=== PATIENT | male | born 1960 | race Asian ===

== ENCOUNTER 2018-08-20 07:30 | Inpatient (IN) | payer OTHER ==
[2018-08-20] MEDS: SOD CHLORIDE 0.9% 1,000 ML IV (07:56)
[2018-08-20] MEDS: CEFAZOLIN 2 GM/50 ML (PMX) 50 ML IVPB (09:00)
[2018-08-20] MEDS: BUPIVACAINE 0.25% (MPF) 30 ML INJ (09:43)
[2018-08-20] MEDS ORDERED: NEOSTIGMINE 3 MG/3 ML SYRINGE (11:03)
[2018-08-20] MEDS ORDERED: PROPOFOL 20 ML (11:03)
[2018-08-20] MEDS ORDERED: GLYCOPYRROLATE 0.4 MG INJ (11:03)
[2018-08-20] MEDS ORDERED: CEFAZOLIN 1 GM INJ (11:03)
[2018-08-20] MEDS ORDERED: ROCURONIUM 50 MG INJ (11:03)
[2018-08-20] MEDS ORDERED: LIDOCAINE 2% (SDV) 5 ML INJ (11:03)
[2018-08-20] MEDS ORDERED: ONDANSETRON 4 MG INJ (11:04)
[2018-08-20] MEDS ORDERED: hydrALAzine 20 MG INJ IV (11:30)
[2018-08-20] MEDS ORDERED: KETOROLAC 30 MG INJ IV (11:30)
[2018-08-20] MEDS ORDERED: DIPHENHYDRAMINE 50 MG INJ IV (11:30)
[2018-08-20] MEDS ORDERED: LABETALOL HCL 20MG INJ IV (11:30)
[2018-08-20] MEDS ORDERED: METOCLOPRAMIDE 10 MG INJ IV (11:30)
[2018-08-20] MEDS ORDERED: HYDROmorphONE 1 MG/5 ML IV SYRINGE IV (11:30)
[2018-08-20] MEDS: MEPERIDINE 25 MG INJ IV (11:32)
[2018-08-20] MEDS: ONDANSETRON 4 MG INJ IV (11:34)
[2018-08-20] MEDS: HYDROmorphONE 1 MG/5 ML IV SYRINGE IV (12:08)
[2018-08-20] MEDS: HYDROCODONE/APAP (5/325) TAB PO (12:18)
[2018-08-20] MEDS: FENTAnyl 50 MCG/ML VIAL IV (12:37)
[2018-08-20] MEDS ORDERED: ALBUTEROL 0.083% (NEB) 2.5 MG/3 ML AMP HHN (14:00)
[2018-08-20] MEDS: SOD CHLORIDE 0.45% 1,000 ML IV (20:59)
[2018-08-20] MEDS ORDERED: GLUCAGON 1 MG INJ IM (21:00)
[2018-08-20] MEDS ORDERED: GLUCOSE GEL 15 GRAM TUBE BUCCAL (21:00)
[2018-08-20] MEDS ORDERED: DEXTROSE 50% 50 ML SYRINGE IV ×2 (21:00)
[2018-08-20] MEDS ORDERED: GLUCOSE GEL 15 GRAM TUBE PO ×2 (21:00)
[2018-08-20] MEDS: ATORVASTATIN 40 MG TAB PO (21:00)
[2018-08-20] MEDS: INSULIN ASPART [NOVOLOG] 3 ML PEN SC (21:25)
[2018-08-20] MEDS: ALBUTEROL/IPRATROPIUM (NEB) 3 ML AMP HHN (22:06)
[2018-08-21] MEDS: ACETAMINOPHEN 325 MG TAB PO ×2 (00:35→21:15)
[2018-08-21] MEDS: ACCU-CHEK XX (02:00)
[2018-08-21 05:08] LABS: ADD MAN DIFF? NO
[2018-08-21 05:11] LABS: BASOPHILS % 0.2 % (0.0-2.0); EOSINOPHILS % 0.2 % (0.0-7.0); HEMATOCRIT 34.4 % (42.0-52.0); HEMOGLOBIN 11.2 g/dl (14.0-18.0); LYMPHOCYTES % 14.9 % (15.0-51.0); MEAN CORPUSCULAR HEMOGLOBIN 25.4 pg (29.0-33.0); MEAN CORPUSCULAR HGB CONC 32.6 g/dl (32.0-37.0); MEAN PLATELET VOLUME 11.1 fl (7.4-10.4); MONOCYTE # 1.1 10^3/ul (0.3-0.9); MONOCYTES % 8.1 % (0.0-11.0); NEUTROPHILS % 76.3 % (39.0-77.0); PLATELET COUNT 247 10^3/UL (140-415); RED BLOOD COUNT 4.41 10^6/ul (4.70-6.10)
[2018-08-21 05:11] LABS: WHITE BLOOD COUNT 13.1 10^3/ul (4.8-10.8)
[2018-08-21 05:34] LABS: ANION GAP 7 (5-13); BLOOD UREA NITROGEN 9 mg/dl (7-20); CALCIUM 8.8 mg/dl (8.4-10.2); CARBON DIOXIDE 30 mmol/L (21-31); CHLORIDE 98 mmol/L (97-110); CREATININE 0.85 mg/dl (0.61-1.24); Estimated GFR > 60 mL/min (>60); GLUCOSE 195 mg/dl (70-220); SODIUM 135 mmol/L (135-144)
[2018-08-21 05:39] LABS: POTASSIUM 4.1 mmol/L (3.5-5.1)
[2018-08-21] MEDS: HYDROCODONE/APAP (5/325) TAB PO (05:46)
[2018-08-21] MEDS: PANTOPRAZOLE (EC) 40 MG TAB PO (07:02)
[2018-08-21] MEDS: INSULIN ASPART [NOVOLOG] 3 ML PEN SC ×4 (08:45→21:00)
[2018-08-21] MEDS: ASPIRIN (EC) 81 MG TAB PO (09:28)
[2018-08-21] MEDS: AMLODIPINE 10 MG TAB PO (09:28)
[2018-08-21] MEDS: LOSARTAN 50 MG TAB PO (09:29)
[2018-08-21] MEDS: SOD CHLORIDE 0.45% 1,000 ML IV (13:18)
[2018-08-21] MEDS: KETOROLAC 15 MG INJ IV (14:26)
[2018-08-21] MEDS ORDERED: morphine SULFATE/PF (2 MG/2 ML) SYG IV (14:35)
[2018-08-21] MEDS: morphine SULFATE/PF (2 MG/2 ML) SYG IV ×2 (14:40→21:15)
[2018-08-21 15:15] LABS: ADD MAN DIFF? NO
[2018-08-21 15:18] LABS: BASOPHILS % 0.2 % (0.0-2.0); EOSINOPHILS % 0.3 % (0.0-7.0); HEMATOCRIT 36.9 % (42.0-52.0); HEMOGLOBIN 11.8 g/dl (14.0-18.0); LYMPHOCYTES # 1.6 10^3/ul (0.8-2.9); LYMPHOCYTES % 11.3 % (15.0-51.0); MEAN CORPUSCULAR HEMOGLOBIN 24.9 pg (29.0-33.0); MONOCYTE # 0.9 10^3/ul (0.3-0.9); MONOCYTES % 6.6 % (0.0-11.0); NEUTROPHIL # 11.6 10^3/ul (1.6-7.5); NEUTROPHILS % 81.1 % (39.0-77.0); PLATELET COUNT 264 10^3/UL (140-415); RED BLOOD COUNT 4.73 10^6/ul (4.70-6.10); RED CELL DISTRIBUTION WIDTH 14.8 % (11.5-14.5)
[2018-08-21 15:18] LABS: WHITE BLOOD COUNT 14.3 10^3/ul (4.8-10.8)
[2018-08-21] MEDS: IOHEXOL 100 ML (16:13)
[2018-08-21] MEDS: SOD CHLORIDE 0.9% 100 ML (16:13)
[2018-08-21] MEDS: ATORVASTATIN 40 MG TAB PO (21:16)
[2018-08-21] MEDS: ONDANSETRON 4 MG INJ IV (21:16)
[2018-08-22] MEDS: INSULIN ASPART [NOVOLOG] 3 ML PEN SC ×6 (01:00→20:49)
[2018-08-22] MEDS: ACCU-CHEK XX (01:42)
[2018-08-22] MEDS: SOD CHLORIDE 0.45% 1,000 ML IV ×2 (01:42→14:43)
[2018-08-22] MEDS: morphine SULFATE/PF (2 MG/2 ML) SYG IV ×2 (01:42→06:32)
[2018-08-22 04:51] LABS: ADD MAN DIFF? NO
[2018-08-22 04:54] LABS: WHITE BLOOD COUNT 12.4 10^3/ul (4.8-10.8)
[2018-08-22 04:54] LABS: BASOPHILS % 0.2 % (0.0-2.0); EOSINOPHILS # 0.2 10^3/ul (0.0-0.5); EOSINOPHILS % 1.5 % (0.0-7.0); HEMATOCRIT 33.6 % (42.0-52.0); HEMOGLOBIN 10.7 g/dl (14.0-18.0); LYMPHOCYTES # 1.7 10^3/ul (0.8-2.9); LYMPHOCYTES % 13.9 % (15.0-51.0); MEAN CORPUSCULAR HEMOGLOBIN 25.2 pg (29.0-33.0); MEAN CORPUSCULAR HGB CONC 31.8 g/dl (32.0-37.0); MEAN CORPUSCULAR VOLUME 79.1 fl (82.0-101.0); MEAN PLATELET VOLUME 11.4 fl (7.4-10.4); MONOCYTE # 1.1 10^3/ul (0.3-0.9); MONOCYTES % 8.6 % (0.0-11.0); NEUTROPHIL # 9.3 10^3/ul (1.6-7.5); NEUTROPHILS % 75.4 % (39.0-77.0); PLATELET COUNT 224 10^3/UL (140-415); RED BLOOD COUNT 4.25 10^6/ul (4.70-6.10)
[2018-08-22 05:16] LABS: ANION GAP 7 (5-13); BLOOD UREA NITROGEN 10 mg/dl (7-20); CALCIUM 8.6 mg/dl (8.4-10.2); CARBON DIOXIDE 29 mmol/L (21-31); CHLORIDE 101 mmol/L (97-110); CREATININE 0.89 mg/dl (0.61-1.24); Estimated GFR > 60 mL/min (>60); GLUCOSE 131 mg/dl (70-220); POTASSIUM 3.7 mmol/L (3.5-5.1); SODIUM 137 mmol/L (135-144)
[2018-08-22] MEDS: HYDROCODONE/APAP (5/325) TAB PO ×2 (10:08→17:51)
[2018-08-22] MEDS: ASPIRIN (EC) 81 MG TAB PO (10:08)
[2018-08-22] MEDS: LOSARTAN 50 MG TAB PO (10:09)
[2018-08-22] MEDS: AMLODIPINE 10 MG TAB PO (10:09)
[2018-08-22] MEDS: PANTOPRAZOLE (EC) 40 MG TAB PO (10:10)
[2018-08-22] MEDS: ATORVASTATIN 40 MG TAB PO (20:43)
[2018-08-23] MEDS: INSULIN ASPART [NOVOLOG] 3 ML PEN SC ×6 (01:00→20:48)
[2018-08-23] MEDS: morphine SULFATE/PF (2 MG/2 ML) SYG IV ×2 (01:52→06:18)
[2018-08-23] MEDS: ACCU-CHEK XX (01:55)
[2018-08-23 05:35] LABS: ADD MAN DIFF? NO
[2018-08-23 05:36] LABS: WHITE BLOOD COUNT 9.9 10^3/ul (4.8-10.8)
[2018-08-23 05:36] LABS: BASOPHILS % 0.3 % (0.0-2.0); EOSINOPHILS # 0.2 10^3/ul (0.0-0.5); EOSINOPHILS % 1.6 % (0.0-7.0); HEMATOCRIT 31.4 % (42.0-52.0); HEMOGLOBIN 10.2 g/dl (14.0-18.0); LYMPHOCYTES # 1.2 10^3/ul (0.8-2.9); LYMPHOCYTES % 12.1 % (15.0-51.0); MEAN CORPUSCULAR HEMOGLOBIN 25.2 pg (29.0-33.0); MEAN CORPUSCULAR HGB CONC 32.5 g/dl (32.0-37.0); MEAN CORPUSCULAR VOLUME 77.5 fl (82.0-101.0); MEAN PLATELET VOLUME 11.8 fl (7.4-10.4); MONOCYTE # 0.9 10^3/ul (0.3-0.9); MONOCYTES % 9.4 % (0.0-11.0); NEUTROPHIL # 7.6 10^3/ul (1.6-7.5); NEUTROPHILS % 76.3 % (39.0-77.0); PLATELET COUNT 228 10^3/UL (140-415); RED BLOOD COUNT 4.05 10^6/ul (4.70-6.10); RED CELL DISTRIBUTION WIDTH 14.6 % (11.5-14.5)
[2018-08-23 06:14] LABS: ALANINE AMINOTRANSFERASE 43 IU/L (13-69); ALBUMIN 3.3 g/dl (3.3-4.9); ALBUMIN/GLOBULIN RATIO 1.03; ALKALINE PHOSPHATASE 79 IU/L (42-121); ANION GAP 8 (5-13); ASPARTATE AMINO TRANSFERASE 29 IU/L (15-46); BLOOD UREA NITROGEN 11 mg/dl (7-20); CALCIUM 8.4 mg/dl (8.4-10.2); CARBON DIOXIDE 27 mmol/L (21-31); CHLORIDE 101 mmol/L (97-110); CREATININE 0.81 mg/dl (0.61-1.24); Estimated GFR > 60 mL/min (>60); GLUCOSE 164 mg/dl (70-220); POTASSIUM 3.5 mmol/L (3.5-5.1); SODIUM 136 mmol/L (135-144); TOTAL PROTEIN 6.5 g/dl (6.1-8.1)
[2018-08-23] MEDS: PANTOPRAZOLE (EC) 40 MG TAB PO (09:36)
[2018-08-23] MEDS: LOSARTAN 50 MG TAB PO (09:36)
[2018-08-23] MEDS: ASPIRIN (EC) 81 MG TAB PO (09:36)
[2018-08-23] MEDS: AMLODIPINE 10 MG TAB PO (09:37)
[2018-08-23] MEDS: HYDROCODONE/APAP (5/325) TAB PO ×2 (11:46→20:41)
[2018-08-23] MEDS: SOD CHLORIDE 0.45% 1,000 ML IV (15:10)
[2018-08-23] MEDS: ATORVASTATIN 40 MG TAB PO (20:41)
[2018-08-24] MEDS: ACCU-CHEK XX (02:31)
[2018-08-24 05:02] LABS: ADD MAN DIFF? NO
[2018-08-24 05:09] LABS: WHITE BLOOD COUNT 7.7 10^3/ul (4.8-10.8)
[2018-08-24 05:09] LABS: BASOPHILS % 0.3 % (0.0-2.0); EOSINOPHILS # 0.2 10^3/ul (0.0-0.5); HEMOGLOBIN 10.3 g/dl (14.0-18.0); LYMPHOCYTES # 1.4 10^3/ul (0.8-2.9); LYMPHOCYTES % 17.6 % (15.0-51.0); MEAN CORPUSCULAR HEMOGLOBIN 25.4 pg (29.0-33.0); MEAN CORPUSCULAR HGB CONC 33.2 g/dl (32.0-37.0); MEAN CORPUSCULAR VOLUME 76.5 fl (82.0-101.0); MEAN PLATELET VOLUME 11.3 fl (7.4-10.4); MONOCYTE # 0.9 10^3/ul (0.3-0.9); MONOCYTES % 11.4 % (0.0-11.0); NEUTROPHIL # 5.2 10^3/ul (1.6-7.5); NEUTROPHILS % 67.4 % (39.0-77.0); PLATELET COUNT 276 10^3/UL (140-415); RED BLOOD COUNT 4.05 10^6/ul (4.70-6.10); RED CELL DISTRIBUTION WIDTH 14.6 % (11.5-14.5)
[2018-08-24 05:23] LABS: ANION GAP 5 (5-13); BLOOD UREA NITROGEN 10 mg/dl (7-20); CALCIUM 8.5 mg/dl (8.4-10.2); CARBON DIOXIDE 31 mmol/L (21-31); CHLORIDE 101 mmol/L (97-110); CREATININE 0.72 mg/dl (0.61-1.24); Estimated GFR > 60 mL/min (>60); GLUCOSE 187 mg/dl (70-220); POTASSIUM 3.3 mmol/L (3.5-5.1); SODIUM 137 mmol/L (135-144)
[2018-08-24] MEDS: HYDROCODONE/APAP (5/325) TAB PO (07:02)
[2018-08-24] MEDS: PANTOPRAZOLE (EC) 40 MG TAB PO ×2 (08:48→20:13)
[2018-08-24] MEDS: ASPIRIN (EC) 81 MG TAB PO (08:49)
[2018-08-24] MEDS: LOSARTAN 50 MG TAB PO (08:49)
[2018-08-24] MEDS: AMLODIPINE 10 MG TAB PO (08:49)
[2018-08-24] MEDS: INSULIN ASPART [NOVOLOG] 3 ML PEN SC ×4 (08:51→20:17)
[2018-08-24] MEDS: SOD CHLORIDE 0.45% 1,000 ML IV (08:51)
[2018-08-24] MEDS ORDERED: morphine LIQ (10 MG/5 ML) CUP PO (17:00)
[2018-08-24] MEDS: POTASSIUM CHLORIDE 20 MEQ POWDER FOR ORAL SOLN PO (17:43)
[2018-08-24] MEDS ORDERED: POTASSIUM CHLORIDE (SR) 20 MEQ TAB PO (17:57)
[2018-08-24] MEDS: ATORVASTATIN 40 MG TAB PO (20:13)
[2018-08-24] MEDS ORDERED: NON-FORMULARY/PATIENT OWN MED (Sitagliptin Phos/Metformin HCl (Janumet 50-1,000 mg Tablet) PO (21:00)
[2018-08-25] MEDS: ACCU-CHEK XX (02:31)
[2018-08-25 05:25] LABS: ADD MAN DIFF? NO
[2018-08-25 05:26] LABS: WHITE BLOOD COUNT 6.8 10^3/ul (4.8-10.8)
[2018-08-25 05:26] LABS: BASOPHILS % 0.6 % (0.0-2.0); EOSINOPHILS # 0.3 10^3/ul (0.0-0.5); EOSINOPHILS % 4.2 % (0.0-7.0); HEMATOCRIT 33.6 % (42.0-52.0); HEMOGLOBIN 10.9 g/dl (14.0-18.0); LYMPHOCYTES # 1.7 10^3/ul (0.8-2.9); LYMPHOCYTES % 24.5 % (15.0-51.0); MEAN CORPUSCULAR HEMOGLOBIN 24.9 pg (29.0-33.0); MEAN CORPUSCULAR HGB CONC 32.4 g/dl (32.0-37.0); MEAN CORPUSCULAR VOLUME 76.9 fl (82.0-101.0); MONOCYTE # 0.8 10^3/ul (0.3-0.9); NEUTROPHILS % 58.4 % (39.0-77.0); PLATELET COUNT 310 10^3/UL (140-415); RED BLOOD COUNT 4.37 10^6/ul (4.70-6.10); RED CELL DISTRIBUTION WIDTH 14.4 % (11.5-14.5)
[2018-08-25 05:51] LABS: ANION GAP 7 (5-13); BLOOD UREA NITROGEN 8 mg/dl (7-20); CALCIUM 8.9 mg/dl (8.4-10.2); CARBON DIOXIDE 31 mmol/L (21-31); CHLORIDE 101 mmol/L (97-110); Estimated GFR > 60 mL/min (>60); GLUCOSE 195 mg/dl (70-220); SODIUM 139 mmol/L (135-144)
[2018-08-25 06:20] LABS: POTASSIUM 3.7 mmol/L (3.5-5.1)
[2018-08-25] MEDS: PANTOPRAZOLE (EC) 40 MG TAB PO (06:52)
[2018-08-25] MEDS: ASPIRIN (EC) 81 MG TAB PO (08:14)
[2018-08-25] MEDS: AMLODIPINE 10 MG TAB PO (08:14)
[2018-08-25] MEDS: LOSARTAN 50 MG TAB PO (08:14)
[2018-08-25] MEDS: INSULIN ASPART [NOVOLOG] 3 ML PEN SC ×2 (08:51→12:44)
== END 2018-08-25 13:54 | disposition home or self-care (01) | DRG 418 ==
LOC: SDS 07:30 → REC 16:52 → MS1 18:19
PROVIDERS: Surgery
PROC: 0FT44ZZ Resection of Gallbladder, Percutaneous Endoscopic Approach (ICD-10-PCS; principal; 2018-08-20 09:53)
DX: K80.80 Other cholelithiasis without obstruction (principal); J98.11 Atelectasis; K56.7 Ileus, unspecified; I10 Essential (primary) hypertension; E11.9 Type 2 diabetes mellitus without complications
CPT/HCPCS: 71045; 71275; 74018; 74177; 80048; 80053; 82962; 85025; 88304; 94640; 94664; 97161; 99217